=== PATIENT | female | born 1940 | race Caucasian/White ===

== ENCOUNTER → 2019-08-18 | Day surgery (SDC) | payer MEDICARE ==
[~2019-08-18] VITALS: Ht 152.4 cm; Wt 66.5 kg
[~2019-08-18] MED LIST: ACETAMINOPHEN 325 MG TABLET PO PRN; CHLORHEXIDINE 15 ML UDC MM STA; EPHEDRINE 50 MG/ML, 1ML IVPush PRN; EPHEDRINE 50 MG/ML, 1ML ONE; FENTANYL PF 100 MCG/2ML IV PRN; FENTANYL PF 100 MCG/2ML ONE; GLYCOPYRROLATE 0.2MG/1ML, 5ML ONE; HYDROcodone/APAP 7.5-325MG/15ML UDC PO PRN; HYDROmorphone 2 MG/ML, 1ML IVPush PRN; LABETALOL 5MG/ML, 20ML IV PRN; LACTATED RINGERS 1,000 ML IV SCH; LIDOCAINE-MPF 2% ,5ML ONE; MEPERIDINE/PF 25MG/ML,1ML IVPush PRN; ONDANSETRON 2MG/ML, 2ML IV PRN; PHENYLEPHRINE 10 MG/ML ONE; PROMETHAZINE 25 MG/ML, 1ML IV PRN; PROPOFOL 10 MG/ML, 20ML ONE; SUCCINYLCHOLINE 20 MG/ML, 10ML ONE; hydrALAzine 20 MG/ML, 1ML IV PRN
[2019-08-18 11:39] VITALS: BP 140/79
== END | disposition home or self-care (01) ==
LOC: OUT 12:00
PROVIDERS: ATTEND Internal Medicine Gastroenterology
DX: K22.8 Other specified diseases of esophagus (principal); K86.89 Other specified diseases of pancreas; C15.9 Malignant neoplasm of esophagus, unspecified; C25.9 Malignant neoplasm of pancreas, unspecified; K44.9 Diaphragmatic hernia without obstruction or gangrene; K59.00 Constipation, unspecified; E03.9 Hypothyroidism, unspecified; J44.9 Chronic obstructive pulmonary disease, unspecified; E66.9 Obesity, unspecified; Z68.30 Body mass index [BMI] 30.0-30.9, adult; Z79.890 Hormone replacement therapy; Z79.899 Other long term (current) drug therapy; Z87.891 Personal history of nicotine dependence; Z88.5 Allergy status to narcotic agent; Z90.49 Acquired absence of other specified parts of digestive tract
CPT/HCPCS: 43239; 43242; 88172; 88173; 88305; 88307; 93005; J0330; J2370; J2704; J3010; J7120

== ENCOUNTER → 2019-08-26 | Outpatient (CLI) | payer MEDICARE | END | disposition home or self-care (01) | LOC: ROC 07:57 | PROVIDERS: ATTEND Radiology Radiation Oncology | DX: C15.5 Malignant neoplasm of lower third of esophagus (principal); C25.9 Malignant neoplasm of pancreas, unspecified; K57.30 Diverticulosis of large intestine without perforation or abscess without bleeding; D35.01 Benign neoplasm of right adrenal gland | CPT/HCPCS: G0463 ==

== ENCOUNTER → 2019-08-31 | Outpatient (CLI) | payer MEDICARE ==
[~2019-08-31] MED LIST changes: -ACETAMINOPHEN 325 MG TABLET PO PRN; -CHLORHEXIDINE 15 ML UDC MM STA; -EPHEDRINE 50 MG/ML, 1ML IVPush PRN; -EPHEDRINE 50 MG/ML, 1ML ONE; -FENTANYL PF 100 MCG/2ML IV PRN; -FENTANYL PF 100 MCG/2ML ONE; -GLYCOPYRROLATE 0.2MG/1ML, 5ML ONE; -HYDROcodone/APAP 7.5-325MG/15ML UDC PO PRN; -HYDROmorphone 2 MG/ML, 1ML IVPush PRN; -LABETALOL 5MG/ML, 20ML IV PRN; -LACTATED RINGERS 1,000 ML IV SCH; -LIDOCAINE-MPF 2% ,5ML ONE; -MEPERIDINE/PF 25MG/ML,1ML IVPush PRN; +OMNIPAQUE 350 MG/ML, 100ML BOTTLE ONE; -ONDANSETRON 2MG/ML, 2ML IV PRN; -PHENYLEPHRINE 10 MG/ML ONE; -PROMETHAZINE 25 MG/ML, 1ML IV PRN; -PROPOFOL 10 MG/ML, 20ML ONE; -SUCCINYLCHOLINE 20 MG/ML, 10ML ONE; -hydrALAzine 20 MG/ML, 1ML IV PRN
== END | disposition home or self-care (01) ==
LOC: CFH 09:24
PROVIDERS: ATTEND Radiology Radiation Oncology
DX: C25.1 Malignant neoplasm of body of pancreas (principal); C15.9 Malignant neoplasm of esophagus, unspecified; R19.09 Other intra-abdominal and pelvic swelling, mass and lump; K22.8 Other specified diseases of esophagus; K76.0 Fatty (change of) liver, not elsewhere classified; I51.7 Cardiomegaly; K46.9 Unspecified abdominal hernia without obstruction or gangrene; I70.0 Atherosclerosis of aorta; Z90.49 Acquired absence of other specified parts of digestive tract
CPT/HCPCS: 74170; Q9967

== ENCOUNTER → 2019-09-01 | Outpatient (CLI) | payer MEDICARE | END | disposition home or self-care (01) | LOC: PETCFH 08:48 | PROVIDERS: ATTEND Radiology Radiation Oncology | DX: C78.7 Secondary malignant neoplasm of liver and intrahepatic bile duct (principal); C25.1 Malignant neoplasm of body of pancreas; C15.9 Malignant neoplasm of esophagus, unspecified; K57.30 Diverticulosis of large intestine without perforation or abscess without bleeding; I70.0 Atherosclerosis of aorta; D35.01 Benign neoplasm of right adrenal gland; Q25.46 Tortuous aortic arch; Z90.49 Acquired absence of other specified parts of digestive tract | CPT/HCPCS: 78815; A9552 ==